=== PATIENT | male | born 1955 | race Caucasian/White ===

== ENCOUNTER → 2024-05-25 09:16 | Outpatient (REF) | payer MEDICARE, BC, SELFPAY | LOC: RCS 09:16 | PROVIDERS: ATTENDING PHYSICIAN Internal Medicine; FAMILY PHYSICIAN Family Medicine | DX: I48.0 Paroxysmal atrial fibrillation (principal); G45.9 Transient cerebral ischemic attack, unspecified; I35.1 Nonrheumatic aortic (valve) insufficiency; I34.0 Nonrheumatic mitral (valve) insufficiency | CPT/HCPCS: 93306 ==

== ENCOUNTER 2024-10-08 13:41 | Emergency (ER) | payer MEDICARE, BC, SELFPAY ==
[2024-10-08 13:41] VITALS: BMI 23.4
[2024-10-08 13:45] VITALS: BP 179/99
[2024-10-08 14:14] LABS: ALT (SGPT) 19 U/L (0-50); AST (SGOT) 25 U/L (17-59); Albumin 4.9 g/dl (3.5-5.0); Alkaline Phosphatase 64 U/L (38-126); Blood Urea Nitrogen 18 mg/dl (9-20); Calcium 9.6 mg/dl (8.4-10.2); Carbon Dioxide 22 mmol/L (22-30); Chloride 105 mmol/L (98-107); Glucose 103 mg/dl (70-99); Potassium 4.2 mmol/L (3.5-5.1); Sodium 138 mmol/L (135-145); Total Bilirubin 1.3 mg/dl (0.2-1.3); Total Protein 7.3 g/dl (6.3-8.2); eGFR > 60.00
[2024-10-08 14:21] LABS: % Basophils 0.8 % (0-2); % Eosinophils 0.2 % (0-6); % Immature Granulocytes 0.2 % (0-0.5); % Lymphocytes 19.7 % (20.5-51.1); % Monocytes 7.1 % (1.7-9.3); Absolute Basophils 0.1 10^3/uL (0-0.2); Absolute Lymphocytes 1.3 10^3/uL (1.2-3.4); Absolute Monocytes 0.5 10^3/uL (0.1-0.6); Absolute Neutrophils 4.8 10^3/uL (1.4-6.5); Hematocrit 45.6 % (39.0-52.0); Hemoglobin 15.7 g/dL (13.0-18.0); Mean Corp Hgb Conc. 34.4 g/dL (33.0-37.0); Mean Corpuscular Hgb 33.2 pg (27.0-31.0); Mean Corpuscular Volume 96.4 fL (80.0-94.0); Mean Platelet Volume 10.7 fL (7.4-10.4); Nucleated Red Blood Cells % 0 % (-); Platelet Count 213 10^3/uL (130-400); Red Blood Cell Count 4.73 10^6/uL (4.70-6.10); Red Cell Dist. Width 12.8 % (11.5-14.5); White Blood Cell Count 6.6 10^3/uL (4.8-10.8)
[2024-10-08 15:30] VITALS: BP 166/104
[2024-10-08 16:00] VITALS: BP 161/87
--- NOTE | 2024-10-08 16:03 | ED.GENMED ---
History of Present Illness
General
Chief Complaint: Heart Rate Problem
Source: patient and records
Time Seen by Provider: 10/08/24 15:38
History of Present Illness
History of Present Illness:
69-year-old male with past medical history of atrial fibrillation status post PVI with RFA in 2010, redo AF ablation in 05/2017 ([facility]) and a third AF ablation on 10/27/2018 ([facility]), hyperlipidemia who presents to the emergency department after he
felt himself go into atrial fibrillation yesterday afternoon, mild palpitations continued today prompting him come to the ER. Patient states that he was told by his pulp and paper tester, Dr. Andrade, that if he feels that he is in A-fib for 24 to 36 hours he
should come to the emergency department to be evaluated. Patient reports that a couple of years ago he required a procainamide infusion which put him back into a normal sinus rhythm. He reports compliance with his 5 mg Eliquis twice daily as well
as his Cardizem 180 mg once daily which he took already today. At present time during my exam patient is without symptoms including chest pain, shortness of breath, palpitations, exertional dyspnea, orthopnea, cough, fevers or any recent illnesses.
Past History
Past History
ED Past Medical History: Arrthythmia (Paroxysmal atrial fibrillation) and Hypercholesterolemia
ED Past Surgical History: Cardiac (Atrial fibrillation ablation 10/26), Orthopedic (Knee surgery), Tonsilectomy and Other (Eye surgery for lazy eye)
Social History
Tobacco: Non-smoker
Alcohol: Occasional
Drug: None
Personal:
Living: with family
Employment: Employed
Family History
Family History: Hypertension
Review of Systems
Review of Systems
All Other Systems: ROS reviewed and negative except as documented in HPI and ROS
Phy Exam
Physical Exam
Physical Exam:
GENERAL: Alert , in no apparent distress
HEAD: NCAT
EYE: clear conjunctiva
NECK: Supple
ENT: o/p clr, mmm.
CARDIAC: Irregularly irregular, heart rate between 72 and 95 bpm
LUNGS: Clear breath sounds bilaterally, no acute respiratory distress,
NEUROLOGICAL: Alert and oriented
SKIN: Warm and dry, skin intact.
MUSCULOSKELETAL: No edema, well perfused.
PSYCH: Normal and appropriate interaction.
Scores
[id number] Score for Afib Stroke Risk
Age in Years (65=0, 65-74=1, >/=75=2): 65-74
Sex (Female=+1): Male
Congestive Heart Failure History (Yes=+1): No
Hypertension History (Yes=+1): Yes
Stroke/TIA/Thromboembolism History (Yes=+2): No
Vascular Disease History (Yes=+1): No
Diabetes Mellitus (Yes=+1): No
Score: 2
Anticoagulation Recommendations: Recommend anticoagulation (as validated in nonvalvular fib)
Heart Failure Risk
Heart Failure Risk Score: Not Applicable
Heart Score for Chest Pain Patients
STEMI patient?: Not applicable
Withdrawal Assessment of Alcohol
Withdrawal Assessment Completed?: Not applicable
Course
Orders/Labs/Results
Orders:
Orders
10/08/24 13:41
ECG [Electrocardiogram (*1)] Urgent
Reason for Study: Palpitations
10/08/24 13:42
EKG- Treatment ONCE
10/08/24 13:52
CMP [Comprehensive Metabolic Panel] Urgent
Complete Blood Count/With Diff Urgent
Abnormal Lab Results
10/08/24
13:52
MCV 96.4 H fL
(80.0-94.0)
MCH 33.2 H pg
(27.0-31.0)
MPV 10.7 H fL
(7.4-10.4)
Lymphocytes % 19.7 L %
(20.5-51.1)
Glucose 103 H mg/dl
(70-99)
10/08/24 13:52
10/08/24 13:52
Vital Signs
Initial and Last Documented VS:
Initial Vital Signs
Temp Pulse Resp BP Pulse Ox
97.7 F 95 18 179/99 99
10/08/24 13:45 10/08/24 13:45 10/08/24 13:45 10/08/24 13:45 10/08/24 13:45
Last Documented Vital Signs
Temp Pulse Resp BP Pulse Ox
97.7 F 87 19 163/93 98
10/08/24 13:45 10/08/24 16:45 10/08/24 16:45 10/08/24 16:30 10/08/24 16:30
Plug Cutter consulted with Physician
Plug Cutter consulted with physician?: Yes
Name of Physician Consulted: Jaylyn
MDM/Problems Addressed
Differential Diagnosis Includes:
Breakthrough A-fib, valvular dysfunction, electrolyte derangement, less concern for infectious etiology
MDM/Problems Addressed:
69-year-old male presenting to the ER for evaluation of breakthrough atrial fibrillation, notes some mild palpitations yesterday, currently asymptomatic. Patient is hemodynamically stable, he is somewhat hypertensive here, notes a history of
whitecoat syndrome. Patient's heart rate is persistently less than 100 bpm and is otherwise asymptomatic. We had extensive discussion about treatment including increasing dose of his p.o. Cardizem and observing, cardioversion, patient wondering
about repeat procainamide infusion. Will discuss with cardiology for treatment planning. Disposition pending.
Chronic conditions affecting care: Arrhythmia
Acute Exacerbation and/or Progression of Chronic Illness: Arrhythmia
*Pulse Oximetry
Patient hypoxic: no
*EKG
Heart Rate: 108
Rate: tachycardiac
Rhythm: a-fib
[place]: normal axis
Ischemia: no ischemia
*Manager Validation Interpretation
Rate: normal
Rhythm: a-fib
*Critical Care Note
Total Time (30-74mins, 75-104mins- exclusive of procedures): Not Applicable
Data Reviewed
Review of Other/Old Records Reveals: Labs, Records and Testing
Patient Management
Discussion with other providers: Residential Housekeeper
Escalation/DeEscalation of care consider admission/obs:
Case discussed with cardiology, no indication to procainamide infuse, states that if patient does want to be cardioverted it is a reasonable option however given he is hemodynamically stable it is more than reasonable to discharge the patient home
to continue his usual medications and see if he converts on his own as he has done this before. In discussion with the patient following patient does feel comfortable being discharged home, currently foregoing cardioversion. Cardiology will touch
base with him on Thursday when office reopens. Patient aware of return precautions to the ER.
ED Attending Note
-
Portions of this chart may have been created with voice recognition software.� Occasional wrong word or��sound alike� substitutions may have occurred due to the inherent limitations of voice recognition software.
Discharge Plan
Departure
Patient Disposition: Home (Routine Discharge)
Date of Disposition: 10/08/24
Time of Disposition: 17:11
Patient with high blood pressure during this ER visit?: Yes
Discharge Problem:
Atrial fibrillation
Instructions: Atrial Fibrillation (DC)
Prescriptions:
No Action
multivitamin with folic acid [Tab-A-Jose C] 1 TABLET tablet
1 tab PO DAILY Qty: 0 0RF
rosuvastatin 10 MG tablet
20 mg PO QPM
apixaban [Eliquis] 5 MG tablet
5 mg PO BID Qty: 60 2RF
coenzyme Q10 [Co Q-10] 10 MG capsule
200 mg PO DAILY
zolpidem 10 MG tablet
10 mg PO HSPRN PRN (Reason: travel flights )
rosuvastatin 10 MG tablet
10 mg PO TUFR
losartan 50 MG tablet
50 mg PO DAILY Qty: 30 0RF
diltiazem HCl 120 MG capsule,ext.rel 24h degradable
120 mg PO DAILY Qty: 30 0RF
Referrals:
Bautista Sultana MD [Family Provider] -
Interventions
Interventions:
*Risk Screen - Suicide Last Done: 10/08/24 13:45
*General Assessment Last Done: 10/08/24 13:45
*Neglect/Abuse Screening Last Done: 10/08/24 13:45
*ED- Fall Risk Assessment Last Done: 10/08/24 17:17
*ED COVID-19 Vaccine History Last Done: 10/08/24 15:24
*Nursing Disposition Last Done: 10/08/24 17:17
ED- Cardiac Assessment Last Done: 10/08/24 15:26
ED- Pulmonary Assessment Last Done: 10/08/24 15:26
Discharge Date and Time
Discharge Date/Time: 10/08/24 17:18
Print Language: IRISH
[2024-10-08 16:30] VITALS: BP 163/93
== END 2024-10-08 17:18 | disposition home or self-care (01) ==
LOC: EMR 13:41
PROVIDERS: Emergency Medicine; EMERGENCY PHYSICIAN Emergency Medicine; FAMILY PHYSICIAN Family Medicine
DX: I48.91 Unspecified atrial fibrillation (principal); I10 Essential (primary) hypertension; E78.00 Pure hypercholesterolemia, unspecified; Z79.01 Long term (current) use of anticoagulants; Z79.899 Other long term (current) drug therapy; Z82.49 Family history of ischemic heart disease and other diseases of the circulatory system
CPT/HCPCS: 99283; 80053; 85025; 93005

== ENCOUNTER 2024-10-10 10:19 | Emergency (ER) | payer MEDICARE, BC, SELFPAY ==
[2024-10-10 10:22] VITALS: BP 155/92
--- NOTE | 2024-10-10 11:14 | ED.GENMED ---
History of Present Illness
General
Chief Complaint: Heart Rate Problem
Source: patient
Time Seen by Provider: 10/10/24 11:01
History of Present Illness
History of Present Illness:
this is a 69-year-old male with a history of A-fib who was recently seen here 2 days ago for A-fib. Patient states his symptoms continued to feel mildly short of breath and anxious. Patient states he admits that he often does get intermittent
episodes of A-fib but goes away quickly. This had persisted. On my arrival to the room, the patient states that he converted to normal sinus. The patient states he immediately felt better and less anxious. Now feels much improved. Has scheduled
follow-up. Already on diltiazem and anticoagulation. States his resting heart rate is often in the 50s
Past History
Past History
ED Past Medical History: Arrthythmia (Paroxysmal atrial fibrillation) and Hypercholesterolemia
ED Past Surgical History: Cardiac (Atrial fibrillation ablation 10/26), Orthopedic (Knee surgery), Tonsilectomy and Other (Eye surgery for lazy eye)
Social History
Tobacco: Non-smoker
Alcohol: Occasional
Drug: None
Personal:
Living: with family
Employment: Employed
Family History
Family History: Hypertension
Phy Exam
Physical Exam
Physical Exam:
CONSTITUTIONAL Patient alert and oriented to person, place and time. Well-appearing. Vital signs reviewed.
HEAD atraumatic, normocephalic.
EYES eyelids normal to inspection, Extraocular muscles intact, Conjunctiva normal, Sclera normal.
NECK normal range of motion, Trachea midline, no jugular venous distention.
RESPIRATORY CHEST No respiratory distress noted, Chest expansion equal, Bilateral breath sounds clear.
CARDIOVASCULAR regular rate and rhythm, Heart sounds normal.
BACK normal inspection, no obvious deformities
UPPER EXTREMITY range of motion normal, Motor strength normal, no cyanosis, no edema.
LOWER EXTREMITY range of motion normal, Motor strength normal, no cyanosis, no edema.
NEURO Speech normal, No focal motor deficits, Kar coma scale 15, Memory normal, Cranial Nerves intact to screening exam.
SKIN skin warm, dry, and normal in color.
Course
Orders/Labs/Results
Orders:
Orders
10/10/24 10:26
EKG [Electrocardiogram (*1)] Urgent
Reason for Study: Atrial Fibrillation
EKG- Treatment ONCE
10/10/24 11:08
Electrocardiogram (*1) Urgent
Reason for Study: Atrial Fibrillation
EKG- Treatment ONCE
Vital Signs
Initial and Last Documented VS:
Initial Vital Signs
Temp Pulse Resp BP Pulse Ox
97.6 F 71 18 155/92 99
10/10/24 10:22 10/10/24 10:22 10/10/24 10:22 10/10/24 10:22 10/10/24 10:22
Last Documented Vital Signs
Temp Pulse Resp BP Pulse Ox
97.6 F 83 18 155/92 99
10/10/24 10:22 10/10/24 11:06 10/10/24 10:22 10/10/24 10:22 10/10/24 11:06
MDM/Problems Addressed
MDM/Problems Addressed:
Paroxysmal atrial fibrillation
*Pulse Oximetry
Patient hypoxic: no
*EKG
Interpreted by ED Provider?: Yes
Interpretation: normal
Rate: normal
Rhythm: sinus
[place]: normal axis
Interval: normal interval
QRS Pattern: normal QRS
Ischemia: no ischemia
*Orthodontic Treatment Coordinator Interpretation
Rate: normal
Interpretation: normal
Rhythm: sinus
*Critical Care Note
Total Time (30-74mins, 75-104mins- exclusive of procedures): Not Applicable
Data Reviewed
Source: patient
Prescriptions/Medications Considered But Not Given:
Considered AV blockers but patient converted to normal sinus rhythm
Patient Management
Escalation/DeEscalation of care consider admission/obs:
Patient converted without intervention. Recent labs reviewed and do not feel that repeat laboratory studies are warranted. Continue current regimen as his resting heart rate he reports is sometimes in the 50s. He will follow-up with his
global ceo
ED Attending Note
-
Portions of this chart may have been created with voice recognition software.� Occasional wrong word or��sound alike� substitutions may have occurred due to the inherent limitations of voice recognition software.
Discharge Plan
Departure
Patient Disposition: Home (Routine Discharge)
Date of Disposition: 10/10/24
Time of Disposition: 11:14
Patient with high blood pressure during this ER visit?: Yes
Discharge Problem:
Paroxysmal A-fib
Instructions: Atrial Fibrillation (DC), Palpitations (DC), BLOOD PRESSURE
Prescriptions:
No Action
multivitamin with folic acid [Tab-A-Jose C] 1 TABLET tablet
1 tab PO DAILY Qty: 0 0RF
rosuvastatin 10 MG tablet
20 mg PO QPM
apixaban [Eliquis] 5 MG tablet
5 mg PO BID Qty: 60 2RF
coenzyme Q10 [Co Q-10] 10 MG capsule
200 mg PO DAILY
zolpidem 10 MG tablet
10 mg PO HSPRN PRN (Reason: travel flights )
rosuvastatin 10 MG tablet
10 mg PO TUFR
losartan 50 MG tablet
50 mg PO DAILY Qty: 30 0RF
diltiazem HCl 120 MG capsule,ext.rel 24h degradable
120 mg PO DAILY Qty: 30 0RF
Activity Restrictions/Additional Instructions:
Please continue your current medications. Return immediately for chest pain, shortness of breath, palpitations, passing out episode or any other concerns. Please see your global ceo as planned
Interventions
Interventions:
*Risk Screen - Suicide Last Done: 10/10/24 10:22
*General Assessment Last Done: 10/10/24 10:22
*Neglect/Abuse Screening Last Done: 10/10/24 10:22
*ED- Fall Risk Assessment Last Done: 10/10/24 11:10
*ED COVID-19 Vaccine History Last Done: 10/10/24 11:10
ED- Cardiac Assessment Last Done: 10/10/24 11:06
ED- Pulmonary Assessment Last Done: 10/10/24 11:06
Discharge Date and Time
Print Language: SYRIAN
== END 2024-10-10 11:30 | disposition home or self-care (01) ==
LOC: EMR 10:19
PROVIDERS: EMERGENCY PHYSICIAN Emergency Medicine; FAMILY PHYSICIAN Family Medicine
DX: I48.0 Paroxysmal atrial fibrillation (principal); R03.0 Elevated blood-pressure reading, without diagnosis of hypertension
CPT/HCPCS: 99283; 93005

== ENCOUNTER 2025-02-07 13:58 | Emergency (ER) | payer MEDICARE, BC, SELFPAY ==
[2025-02-07 14:02] VITALS: BP 176/110
[2025-02-07 14:19] LABS: Hematocrit 42.2 % (39.0-52.0); Hemoglobin 14.8 g/dL (13.0-18.0); Mean Corp Hgb Conc. 35.1 g/dL (33.0-37.0); Mean Corpuscular Volume 91.3 fL (80.0-94.0); Nucleated Red Blood Cells % 0 % (-); Platelet Count 217 10^3/uL (130-400); Red Cell Dist. Width 12.5 % (11.5-14.5)
[2025-02-07 14:33] LABS: ALT (SGPT) 15 U/L (0-50); AST (SGOT) 21 U/L (17-59); Albumin 4.5 g/dl (3.5-5.0); Alkaline Phosphatase 47 U/L (38-126); Blood Urea Nitrogen 10 mg/dl (9-20); Calcium 9.1 mg/dl (8.4-10.2); Carbon Dioxide 23 mmol/L (22-30); Chloride 97 mmol/L (98-107); Glucose 122 mg/dl (70-99); Potassium 3.7 mmol/L (3.5-5.1); Sodium 128 mmol/L (135-145); Total Protein 6.7 g/dl (6.3-8.2); eGFR > 60.00
[2025-02-07 14:41] LABS: Troponin I < 0.012 ng/ml
[2025-02-07 17:07] VITALS: BP 153/91
--- NOTE | 2025-02-07 17:51 | ED.GENMED ---
History of Present Illness
General
Chief Complaint: Cardiac Symptoms
Time Seen by Provider: 02/07/25 17:33
History of Present Illness
History of Present Illness:
69-year-old male presents to the emergency department for evaluation of A-fib. He has a history of A-fib status post catheter ablation in 2010, he has been maintained on diltiazem and Eliquis since then. States that 2 days ago he developed heart
palpitations that indicated to him he was in A-fib. He did take an extra dose of diltiazem at the request of his hand bindery assembly worker and feels as though it is helping his symptoms, he remains in A-fib. He notes that he has severe unrelenting anxiety
while he is in A-fib and has been unable to eat or sleep since that time. Contacted his hand bindery assembly worker again today, he is scheduled for a procainamide infusion cardioversion in 2 days was advised to come to the ED for further evaluation due to his
ongoing symptoms. Denies any chest pain or chest tightness, denies shortness of breath at this time.
Past History
Past History
ED Past Medical History: Arrthythmia (Paroxysmal atrial fibrillation) and Hypercholesterolemia
ED Past Surgical History: Cardiac (Atrial fibrillation ablation 10/26), Orthopedic (Knee surgery), Tonsilectomy and Other (Eye surgery for lazy eye)
Social History
Tobacco: Non-smoker
Alcohol: Occasional
Drug: None
Personal:
Living: with family
Employment: Employed
Family History
Family History: Hypertension
Review of Systems
Review of Systems
Allergies reviewed?: Yes
All Other Systems: ROS reviewed and negative except as documented in HPI and ROS
Phy Exam
Physical Exam
Physical Exam:
GEN: Well appearing, NAD, WDWN
HEENT: Oral mucosa moist, no scleral icterus
Cardiac: Irregular but controlled rate, no murmur, lungs clear to auscultation
Lung: No respiratory distress, no tachypnea
MSK: No gross deformity or injuries
Skin: Good color, no pallor or jaundice, no rashes
Neuro: AO x3, moves all extremities freely
Psych: Calm, cooperative
Course
Orders/Labs/Results
Orders:
Orders
02/07/25 13:58
EKG [Electrocardiogram (*1)] Urgent
Reason for Study: Atrial Fibrillation
02/07/25 13:59
EKG- Treatment ONCE
02/07/25 14:11
Complete Blood Count/With Diff Urgent
Comprehensive Metabolic Panel Urgent
Troponin I Urgent
Abnormal Lab Results
02/07/25
14:11
RBC 4.62 L 10^6/uL
(4.70-6.10)
MCH 32.0 H pg
(27.0-31.0)
Absolute Lymphs (auto) 1.1 L 10^3/uL
(1.2-3.4)
Neutrophils % 76.6 H %
(42.2-75.2)
Lymphocytes % 16.1 L %
(20.5-51.1)
Sodium 128 L mmol/L
(135-145)
Chloride 97 L mmol/L
(98-107)
Glucose 122 H mg/dl
(70-99)
02/07/25 14:11
02/07/25 14:11
Vital Signs
Initial and Last Documented VS:
Initial Vital Signs
Temp Pulse Resp BP Pulse Ox
98.7 F 79 18 176/110 98
02/07/25 14:02 02/07/25 14:02 02/07/25 14:02 02/07/25 14:02 02/07/25 14:02
Last Documented Vital Signs
Temp Pulse Resp BP Pulse Ox
98.7 F 69 15 153/91 98
02/07/25 14:02 02/07/25 17:45 02/07/25 17:45 02/07/25 17:07 02/07/25 17:53
MDM/Problems Addressed
MDM/Problems Addressed:
Patient remains in a rate controlled atrial fibrillation in the ED, he exhibits no clinical signs of congestive heart failure or acute coronary syndrome. I did discuss the potential benefit of electrical cardioversion in the ED however he would
prefer to go through the scheduled procainamide infusion with his primary hand bindery assembly worker. Given his hemodynamic stability this is reasonable at this time, I have prescribed him anxiolytic medication to use for the next several days as this seems to
be the primary focus of his symptoms
*Pulse Oximetry
SaO2: 98
Oxygen Mode of Delivery: Room air
Patient hypoxic: no
*Critical Care Note
Total Time (30-74mins, 75-104mins- exclusive of procedures): Not Applicable
ED Attending Note
-
Portions of this chart may have been created with voice recognition software.� Occasional wrong word or��sound alike� substitutions may have occurred due to the inherent limitations of voice recognition software.
Discharge Plan
Departure
Patient Disposition: Home (Routine Discharge)
Date of Disposition: 02/07/25
Time of Disposition: 17:52
Patient with high blood pressure during this ER visit?: Yes
Discharge Problem:
Atrial fibrillation
Instructions: Atrial fibrillation (DC)
Prescriptions:
New
lorazepam 1 mg tablet
1 mg PO TID PRN (Reason: anxiety) Qty: 8 0RF
No Action
multivitamin with folic acid [Tab-A-Jose C] 1 TABLET tablet
1 tab PO DAILY Qty: 0 0RF
rosuvastatin 10 MG tablet
20 mg PO QPM
apixaban [Eliquis] 5 MG tablet
5 mg PO BID Qty: 60 2RF
coenzyme Q10 [Co Q-10] 10 MG capsule
200 mg PO DAILY
zolpidem 10 MG tablet
10 mg PO HSPRN PRN (Reason: travel flights )
rosuvastatin 10 MG tablet
10 mg PO TUFR
losartan 50 MG tablet
50 mg PO DAILY Qty: 30 0RF
diltiazem HCl 120 MG capsule,ext.rel 24h degradable
120 mg PO DAILY Qty: 30 0RF
Referrals:
Bautista Sultana MD [Family Provider, Family Practice]
Activity Restrictions/Additional Instructions:
Use the anti anxiety medication as needed
Follow up with your hand bindery assembly worker as discussed
Return if symptoms worsen
Interventions
Interventions:
*Risk Screen - Suicide Last Done: 02/07/25 14:02
*General Assessment Last Done: 02/07/25 14:02
*Neglect/Abuse Screening Last Done: 02/07/25 14:02
*ED- Fall Risk Assessment Last Done: 02/07/25 18:04
*ED COVID-19 Vaccine History Last Done: 02/07/25 17:16
*Nursing Disposition Last Done: 02/07/25 18:04
ED- Pulmonary Assessment Last Done: 02/07/25 17:14
ED- Cardiac Assessment Last Done: 02/07/25 17:14
Discharge Date and Time
Discharge Date/Time: 02/07/25 18:05
Print Language: GREEK
== END 2025-02-07 18:05 | disposition home or self-care (01) ==
LOC: EMR 13:58
PROVIDERS: Emergency Medicine; EMERGENCY PHYSICIAN Emergency Medicine; FAMILY PHYSICIAN Family Medicine
DX: I48.91 Unspecified atrial fibrillation (principal); E78.00 Pure hypercholesterolemia, unspecified
CPT/HCPCS: 99284; 80053; 84484; 85025; 93005

== ENCOUNTER 2025-02-09 10:09 | Day surgery (SDC) | payer MEDICARE, BC, SELFPAY ==
[2025-02-09 10:57] LABS: Magnesium 1.8 mg/dl (1.6-2.3)
--- NOTE | 2025-02-09 12:11 | ITS.CL.CARDI ---
Powerhouse Mechanic Supervisor - Cardioversion
Cardioversion
Procedure Report:
Pharmacologic Cardioversion:
Mr. Ramos is a very pleasant 69 yrs old pleasant gentleman with hx of atrial fibrillation s/p AF ablations x3 (1st in 2010 � RF, then [facility] [id number] and RF in 2018 � Dr. Kerr), anticoagulated with Eliquis, who was planned to undergo redo
ablation in 2021 but had decided to pursue conservative approach with now more frequent and symptomatic recurrences in atrial flutter /atrial fibrillation is here for elective pharmacologic cardioversion. Pt wants to avoid sedation and is opting for
pharmacologic cardioversion.�
Date of the Procedure:
02/09/2025
Indications:
Recurrence of symptomatic atrial fibrillation
Pre-Operative Diagnosis:
Persistent Atrial fibrillation
Post-Operative Diagnosis:
Persistent Atrial fibrillation
Procedure Performed:
DCCV
Performing Physician:
Isabel Castaneda MD
Anesthesia:
See anesthesia records
Pre-procedure Trans-esophageal Echocardiography:
No thrombus noted in the left atrium or left atrial appendage
Deferred. Patient has been on uninterrupted chronic anticoagulation therapy with Eliquis for over 2 months.
Detailed Description of the Procedure:
Written informed consent was obtained from the patient after a full explanation of the risks and benefits of the procedure including the risks of sedation and anesthesia.
The patient was brought to the electrophysiology laboratory in stable condition in fasting state. Continuous electrocardiographic and hemodynamic monitoring was initiated. Zoll patches were applied with alycia-posterior locations.
The initial rhythm was atrial fibrillation.
Cardioversion:
With rhythm, hemodynamic monitoring started. Consent was signed and recorded. A time out was performed.
An IV access was started. Hemodynamics were monitored and pt remained stable. A slow infusion of Ibutilide 1 mg in normal saline was infused over 10 minutes.
Patient rhythm changed from atrial fibrillation to atypical atrial flutter and then to sinus rhythm 2 minutes after the infusion was complete
Procedure End:
There was sinus bradycardia with normal MO interval and QRS. There was no significant pause noted after the shock.
Complications of the Procedure:
None
Condition of Patient at Time of Transfer:
Hemodynamically stable with no neurological or vascular compromise.
Recommendation:
Monitor telemetry and hemodynamics for 4 hours post cardioversion.
Discharge home after 4 hours.
Summary:
Successful pharmacologic cardioversion and moravian of normal sinus rhythm.
== END 2025-02-09 15:44 | disposition home or self-care (01) ==
LOC: CATH 10:09
PROVIDERS: Nurse Practitioner Adult Health; ATTENDING PHYSICIAN Internal Medicine Cardiovascular Disease; FAMILY PHYSICIAN Family Medicine; OTHER PHYSICIAN Internal Medicine
DX: I48.19 Other persistent atrial fibrillation (principal); E78.00 Pure hypercholesterolemia, unspecified
CPT/HCPCS: 96365; 83735; 93005; J1742

== ENCOUNTER 2025-02-14 10:00 | Day surgery (SDC) | payer MEDICARE, BC, SELFPAY ==
[2025-02-14] VITALS (13 sets, daily range): BP systolic 129–185; BP diastolic 75–102; BMI 23.2
[2025-02-14 14:30] LABS: ACT-LR - POC > 397 Seconds (116-155)
[2025-02-14 14:30] LABS: ACT-LR - POC > 397 Seconds (116-155)
[2025-02-14 14:30] LABS: ACT-LR - POC > 397 Seconds (116-155)
--- NOTE | 2025-02-14 15:14 | ITS.CL.ABL ---
Medical Sales Specialist - Ablation
Ablation
Procedure Report:
AFIB ablation:
Mr. Ramos is a very pleasant 69 yr old gentleman with hx of atrial fibrillation s/p AF ablations x3 (1st in 2010 � RF, then Cryo and RF in 2018 and RF in 2019 � Dr. Kerr), with hx of left sided pulmonary vein stenosis since 2010, with LSPV
obliterated and stenosed LIPV in 2017, anticoagulated with Eliquis, who was planned to undergo redo ablation in 2021 but had decided to pursue conservative approach with now more frequent and symptomatic recurrences in atrial flutter /atrial
fibrillation last cardioverted with Ibutilide earlier this month presented today to the EP lab for atrial fibrillation / flutter ablation.
Date of Procedure:
02/14/2025
Indications:
Recurrent atrial fibrillation / atrial flutter
Pre-Operative Diagnosis:
Persistent atrial fibrillation /Atrial flutter
Post-Operative Diagnosis:
Persistent atrial fibrillation /Atrial flutter
Procedure Performed:
Atrial fibrillation ablation with pulmonary vein isolation
Left atrial flutter � roof dependent ablation
Posterior wall isolation
Performing Physician:
Isabel Castaneda MD
Assistants:
EP staff
Anesthesia:
See anesthesia records
Detailed Description of the Procedure:
Written informed consent was obtained from the patient after a full explanation of the risks and benefits of the procedure including the risks of sedation and anesthesia.
The patient was brought to the electrophysiology laboratory in stable condition in fasting state. Continuous electrocardiographic and hemodynamic monitoring was initiated.
The initial rhythm was sinus bradycardia.
Time out:
The procedure site was meticulously prepared with surgical scrub and allowed to dry with no pooling. Sterile draping was applied to cover the procedure site. The image intensifier was draped with sterile bag and positioned over the patient.
Prior to the start of the procedure a surgical pause was performed with in agreement from anesthesia, EP staff with double identifier and explanation of the procedure, plan and site of the procedure stated with allergies and medications and
pertinent labs reviewed.
After infusion of local anesthetic, vascular access was obtained under ultrasound guidance and sheaths were placed over guide wire as detailed below. The images were stored in patient chart.
Sheaths:
��������������� Agilis sheath in right femoral vein upgraded from 8Fr in right femoral vein
��������������� 9Fr in right femoral vein
Catheters:
��������������� The Affera Sphere 9 catheter -bidirectional D/F� - at locations of HRA, RV, LA and LV.
��������������� ICE catheter - at locations of RA, SVC, and RV.
A 7000 units of heparin was given
Intracardiac ECHO:
An 8-Andorran AcuNav intracardiac ECHO (ICE) probe was advanced through the 9-Andorran sheath in the right femoral vein into the right atrium under fluoroscopic and ICE ultrasound image guidance and a baseline ECHO study was performed. The left atrial
size was dilated. There was trace tricuspid regurgitation. There was mild mitral regurgitation. There was normal left ventricular systolic function. There is no pericardial effusion. The left sided vein had no flow noted. The SIDNEY had excellent flow
on Doppler. No definite clot seen.�
During the procedure, ICE was used for monitoring of complications, guidance of trans-septal puncture, monitor the catheter position and tracking ablation lesions. No change in the pericardial space noted throughout the procedure.
Trans-septal Puncture:
Heparin was initiated and infused to maintain appropriate ACT. A J-tipped guidewire was advanced through into the superior vena cava under fluoroscopic and ICE guidance. The Agilis sheath was advanced into the superior vena cava over a guidewire. A
BRK needle with stylet was advanced inside the Agilis sheath. The apparatus was withdrawn until it was in contact with the fossa ovalis. The position was adjusted based on fluoroscopy and ultrasound images from ICE. Under fluoroscopic, hemodynamic
and ICE ultrasound guidance, left atrium was cannulated by advancing the needle. Once atrial septum was cannulated, the needle was pulled back and the guide wire was advanced through the needle into the left atrium. The guide wire was advanced into
the left superior pulmonary vein. Both the sheath and the dilator was advanced into the left atrium. The dilator with the needle was withdrawn. Blood was aspirated from the Agilis sheath and arterial blood confirmed. The sheath was flushed. Saline
injection noted into the left atrium on ICE. The waveform of the LA pressure was recorded. The mapping catheter was advanced in the Agilis sheath into the left pulmonary vein.
3D Electroanatomic Mapping:
Using the Sphere 9 Affera catheter advanced through Agilis sheath into the left atrium, an electroanatomic map (EAM) of the left atrium was created using Acceleraa� mapping system with Vendigi software. The map was used for localization of catheter
position and tacking of ablation lesions.
The EAM of the left atrium showed rotated anatomy. The left sided veins could not be accessed with stenosed antra. The wall of the left sided vein though were reconnected with fractionated and delayed signals noted in the stub of the veins.
The right sided veins were rotated with a large right sided vein and another large anterior vein noted. The rashawn and the right inferior veins had signals noted.
The posterior wall had scattered scar and fractionated signals.
The LA was dilated. �
Following the EAM, preparation were made for ablation.
Ablation:
Ablation # 1: Atrial fibrillation ablation - Pulmonary vein Isolation:
Pulsed field ablation was performed using an open irrigation, bidirectional, contact sensing, dual energy ablation catheter (Affera sphere -9) by completing the circumferential lesions around the left and right pulmonary veins achieving pulmonary
vein isolation.
Ablation # 2: Roof line Formation:
There was a clear channel of electrical activity left in the posterior wall with multiple CFAE and AF areas on the roof and ablation in that area increased the risk of atrial flutter and decision was made to create a roof line to block a slow
conduction. A set of pulsed field ablations were placed on the roof line connecting the left superior pulmonary vein ablation lesions to the right sided pulmonary vein lesions rings.
Ablation # 3: Posterior wall isolation with the Box lesions set Formation:
There was a significant fractionation seen in the posterior wall and LA AF foci along with CFAE made it clear as the posterior wall is critical in maintaining the atrial fibrillation and the decision was made to isolate the posterior wall by
creating a �Box� lesions.
A set of Pulsed field ablations were placed on the floor line connecting the left inferior pulmonary vein ablation lesions to the right inferior pulmonary vein lesions rings.
Once sinus rhythm achieved, the sphere 9 in the posterior wall showed entrance block and the pacing from the posterior wall showed no exit from the box lesions confirming the exit block.
Confirmation of the PVI and bidirectional block:
Following achievement of entrance block at the pulmonary veins, pacing from the Sphere 9 affera catheter in each of the four veins at 10 milliamps for 4 milliseconds showed entrance and exit block.
The LA was mapped with The Acceleraa� mapping system with Vendigi software in sinus rhythm confirming the line of block at the ablation lesions lines.
Patient had conduction delayed with Wenckebach / second degree AV conduction. There was no significant pause noted.
All PVI were rechecked at the end of the case. Entrance and exit block were demonstrated.
Procedure End
ICE study was done again that showed no epicardial accumulation. No complications noted.
Following the completion of the EP study, catheters were removed. Protamine 40 mg was given at the end of the procedure and ACT was checked repeatedly. The sheaths were removed and hemostasis achieved with Fig of 8 suture and manual compression.
Left atrial Pressure:
Pre-Procedure: Mean RA pressure was 11mmHg
Post-Procedure: Mean LA pressure was 10mmHg
Post-Procedure: Mean RA pressure was 1mmHg
Estimated Blood loss:
<10 cc
Specimens Removed:
None.
Implants / Devices:
None
Urine output:
None
Packs / Drains/ Tubes:
None
Instrument / Sponge Count Correct:
Yes
Complications of the Procedure:
None
Condition of Patient at Time of Transfer:
Hemodynamically stable with no neurological or vascular compromise.
Summary:
Successful redo atrial fibrillation ablation with repeat pulmonary vein isolation, roof flutter ablation, posterior wall isolation.
[2025-02-14] MEDS: ANESTHETIC LOZENGE 1 LOZENGE PO ×3 (15:30→22:51)
[2025-02-14] MEDS: ELIQUIS 5 MG PO ×2 (20:27→20:31)
[2025-02-14] MEDS: CRESTOR 20 MG PO (20:31)
[2025-02-14] MEDS: AMBIEN 10 MG PO (22:51)
[2025-02-14] MEDS: NORVASC 5 MG PO (23:32)
--- NOTE | 2025-02-15 00:19 | PTCARENOTE ---
Received pt into room 2250 from superintendent geophysical laboratory RN at ~1930. pt placed on tele, SB, HR 50's. Right groin site C/D/I. No bleeding or hematoma noted at this time. pt ambulated w/ assistance of RN. pt oriented to room and call monteiro. pt requesting Ambien for
sleep tonight, CVPA put in order. Administered per pt request. Encouraged pt to call RN w/ any qustions/concerns. Call monteiro within reach.
~2300 pt BP 170/102, Ed Ezra, CVPA made aware. Order for Norvasc obtained. Administered per order--see JUL.
[2025-02-15 00:30] VITALS: BP 175/87
[2025-02-15] MEDS: TYLENOL 650 MG PO ×2 (01:00→09:56)
[2025-02-15 04:17] VITALS: BP 154/78
[2025-02-15 04:46] LABS: Hematocrit 42.6 % (39.0-52.0); Hemoglobin 14.6 g/dL (13.0-18.0); Mean Corp Hgb Conc. 34.3 g/dL (33.0-37.0); Mean Corpuscular Volume 92.4 fL (80.0-94.0); Platelet Count 206 10^3/uL (130-400); Red Cell Dist. Width 12.8 % (11.5-14.5)
[2025-02-15 05:08] LABS: Blood Urea Nitrogen 11 mg/dl (9-20); Calcium 9.3 mg/dl (8.4-10.2); Carbon Dioxide 25 mmol/L (22-30); Chloride 105 mmol/L (98-107); Estimated Creatinine Clearance 84 ml/min; Glucose 123 mg/dl (70-99); Magnesium 2.0 mg/dl (1.6-2.3); Potassium 4.6 mmol/L (3.5-5.1); Sodium 136 mmol/L (135-145); eGFR > 60.00
[2025-02-15 08:12] VITALS: BP 152/84
[2025-02-15] MEDS: CARDIZEM CD 180 MG PO (08:41)
[2025-02-15] MEDS: ELIQUIS 5 MG PO (08:42)
[2025-02-15 08:46] VITALS: BP 161/87
[2025-02-15] MEDS: ANESTHETIC LOZENGE 1 LOZENGE PO (08:46)
[2025-02-15 09:53] VITALS: BP 145/83
--- NOTE | 2025-02-15 10:25 | W.PN.CARDCBS ---
Addendum entered and electronically signed by Jim Carrillo MD 02/15/25 13:03:
Patient seen and examined in collaboration with MANAGER MARKET RESEARCH; agree with below.
- Patient is stable status-post atrial fibrillation ablation yesterday.
- Stable for discharge to home; outpatient follow-up with Cardiology.
Original Note:
Today's Communication / Plan
-
post ablation with elevated BP
OAC Eliquis
continue diltiazem and add Amlodipine 5mg daily
Impression / Plan
-
PCP: Bautista Sultana MD
CDY: Damien Andrade MD
Mr. Ramos is a very pleasant 69 yr old gentleman with hx of atrial fibrillation s/p AF ablations x3 (1st in 2010 � RF, then Cryo and RF in 2018 and RF in 2019 � Dr. Kerr), with hx of left sided pulmonary vein stenosis since 2010, with LSPV
obliterated and stenosed LIPV in 2018, anticoagulated with Eliquis, who was planned to undergo redo ablation in 2021 but had decided to pursue conservative approach with now more frequent and symptomatic recurrences in atrial flutter /atrial
fibrillation last cardioverted with Ibutilide earlier this month presented today to the EP lab for atrial fibrillation / flutter ablation.
Impression/Plan:
#Symptomatic persistent Afib/Aflutter - prior PVI x 3, post redo PVI, PW and LA flutter ablation 02/14/25. He feels great
groin stable, tele SR/SB
OAC Eliquis, continue diltiazem
#HTN - white coat syndrome but BP's have been running higher than usual
will continue diltiazem, and will add amlodipine 5mg daily, continue to monitor and bring log to f/u apt
#TIA
#GERD
#Panic d/o
#Mild AR/Mild-mod MR
#DJD
stable for d/c home if bp improves after amlodipine
Progress Note - Waste Transportation Technician
Subjective
Date of Service: February 15, 2025
denies sob, mild 05/27 chest tightness
Objective
Labs:
02/15/25 04:23
02/15/25 04:23
Labs
Hgb 14.6 g/dL (13.0-18.0) 02/15/25 04:23
Hct 42.6 % (39.0-52.0) 02/15/25 04:23
Plt Count 206 10^3/uL (130-400) 02/15/25 04:23
Sodium 136 mmol/L (135-145) 02/15/25 04:23
Potassium 4.6 mmol/L (3.5-5.1) 02/15/25 04:23
BUN 11 mg/dl (9-20) 02/15/25 04:23
Creatinine 0.8 mg/dL (0.7-1.3) 02/15/25 04:23
Glucose 123 mg/dl (70-99) H 02/15/25 04:23
Vital Signs and I&O:
Vital Signs
Temp Pulse Resp BP Pulse Ox
97.5 F 82 20 161/87 97
02/15/25 08:12 02/15/25 08:46 02/15/25 08:12 02/15/25 08:46 02/15/25 08:12
Vital Signs
Temp Pulse Resp BP Pulse Ox
97.5 F 82 20 161/87 97
02/15/25 08:12 02/15/25 08:46 02/15/25 08:12 02/15/25 08:46 02/15/25 08:12
Intake & Output
02/13/25 02/14/25 02/15/25 02/16/25
06:59 06:59 06:59 06:59
Intake Total 1774
Balance 1774
Physical Exam
Physical Exam
NAD, AOX3
S1, s2, RRR
CTAB, non labored, no wheeze
SNTND Bsx4
R fem site c/d/i no HT, soft
[2025-02-15 11:14] VITALS: BP 159/80
--- NOTE | 2025-02-15 12:02 | CM ---
Chart reviewed. Patient is independent of ADLS, lives alone in a2 STH, 1 TODD, 0 DME. Plan is for the patient to return home.
--- NOTE | 2025-02-15 14:49 | W.DS.TRANS ---
DC Summary - Material Scheduler
-
Discharge Instructions:
Sleep Apnea Risk Low
Discharge Diagnosis/Procedures Atrial fibrillation post ablation
Diet Low Cholesterol
Driving Restrictions No driving for 24 hours
Instructions:
Stand-Alone Forms: DC Instructions- Cath/EP Lab
Changes to Home Medications: Yes
Discharge Medications:
DC Medications w/original date entered in [facility]
coenzyme Q10 10 mg capsule (Co Q-10) 200 mg PO DAILY 05/07/17
apixaban 5 mg tablet (Eliquis) 5 mg PO BID ##60 06/09/17
diltiazem HCl 180 mg capsule,24 hr,extended release 180 mg PO DAILY 02/09/25
rosuvastatin 20 mg tablet 20 mg PO DAILY 02/09/25
zolpidem 10 mg tablet 10 mg PO HS PRN insomnia 02/09/25
amlodipine 5 mg tablet 5 mg PO DAILY #30 tabs 02/15/25
Home Medication Changes
new to amlodipine
Pending Results: No
== END 2025-02-15 12:31 | disposition home or self-care (01) ==
LOC: CATH 10:00
PROVIDERS: Nurse Practitioner Adult Health; ATTENDING PHYSICIAN Internal Medicine Cardiovascular Disease; FAMILY PHYSICIAN Family Medicine; OTHER PHYSICIAN Internal Medicine
DX: I48.92 Unspecified atrial flutter (principal); I48.19 Other persistent atrial fibrillation; I10 Essential (primary) hypertension; F41.0 Panic disorder [episodic paroxysmal anxiety]; I08.0 Rheumatic disorders of both mitral and aortic valves; I73.9 Peripheral vascular disease, unspecified; Z79.01 Long term (current) use of anticoagulants; Z79.899 Other long term (current) drug therapy
CPT/HCPCS: C1733; 80048; 83735; 85027; 85347; 86850; 86900; 86901; 93005; 93655; 93656; 93657; C1759; C1766; C1769; C1894

== ENCOUNTER 2025-02-18 10:54 | Inpatient (IN) | payer MEDICARE, BC, SELFPAY ==
[2025-02-18] VITALS (18 sets, daily range): BP systolic 103–162; BP diastolic 63–105; BMI 24.5; BMI 22.1
[2025-02-18 09:19] LABS: ALT (SGPT) 22 U/L (0-50); AST (SGOT) 24 U/L (17-59); Albumin 4.9 g/dl (3.5-5.0); Alkaline Phosphatase 56 U/L (38-126); Blood Urea Nitrogen 10 mg/dl (9-20); Calcium 9.7 mg/dl (8.4-10.2); Carbon Dioxide 28 mmol/L (22-30); Chloride 97 mmol/L (98-107); Estimated Creatinine Clearance 84 ml/min; Glucose 125 mg/dl (70-99); Potassium 4.5 mmol/L (3.5-5.1); Sodium 132 mmol/L (135-145); Total Protein 7.5 g/dl (6.3-8.2); eGFR > 60.00
[2025-02-18 09:40] LABS: Hematocrit 49.8 % (39.0-52.0); Hemoglobin 17.2 g/dL (13.0-18.0); Mean Corp Hgb Conc. 34.5 g/dL (33.0-37.0); Mean Corpuscular Volume 93.8 fL (80.0-94.0); Nucleated Red Blood Cells % 0 % (-); Platelet Count 246 10^3/uL (130-400); Red Cell Dist. Width 12.7 % (11.5-14.5)
--- NOTE | 2025-02-18 10:43 | ED.GENMED ---
History of Present Illness
General
Chief Complaint: Chest Pain
Source: patient
Time Seen by Provider: 02/18/25 08:29
History of Present Illness
History of Present Illness:
Note:
CHIEF COMPLAINT(S)
Atrial fibrillation with associated anxiety, insomnia, and difficulty eating.
HISTORY OF PRESENT ILLNESS
The patient is a 69-year-old male with a history of paroxysmal atrial fibrillation who presents with ongoing atrial fibrillation and associated anxiety. He reports being in atrial fibrillation since Thursday, despite taking a second dose of his
prescribed medication. He describes significant stress and symptoms that include elevated blood pressure, insomnia, and anorexia leading to a six-pound weight loss over the past two weeks. He was in a stable sinus rhythm following a recent
cardioversion and ablation, but reverted to atrial fibrillation yesterday. He attributes his inability to eat and sleep primarily to anxiety, which he describes as worsening over the last six to eight months. He identifies these symptoms as similar
to panic attacks. He has consulted multiple cardiologists and is currently under the care of Dr. Andrade for his atrial fibrillation. He has been reassured previously by medical staff regarding the management and prognosis of atrial fibrillation, with
emphasis on stroke prevention and rate control.
PAST MEDICAL AND SURIGICAL HISTORY
The patient has a history of paroxysmal atrial fibrillation.
EXTERNAL RECORDS REVIEWED
The patients current medication regimen and past records from recent cardioversion and ablation were referenced.
CHRONIC MEDICAL CONDITIONS SIGNIFICANTLY AFFECTING CARE
Atrial fibrillation.
SOCIAL DETERMINANTS AFFECTING HEALTH
The patient reports significant anxiety affecting his ability to eat and sleep.
MEDICATIONS
- Apixaban (Eliquis): ongoing use for atrial fibrillation.
- Propranolol: started this week.
- Amlodipine: started this week.
- Lorazepam: previously prescribed.
REVIEW OF SYSTEMS
- Cardiovascular: Persistent atrial fibrillation reported. Blood pressure noted to be elevated.
- Psychiatric: Patient reports anxiety and inability to sleep.
- General: Reports six-pound weight loss over the past two weeks and difficulty eating.
PHYSICAL EXAM
General: Alert, no acute distress.
Skin: Warm, dry.
Head: Normocephalic, atraumatic.
Neck: Supple, trachea midline.
Eyes, Ears, Nose, and Throat: Oral mucosa moist.
Cardiovascular: Heart is irregularly irregular. Lungs clear to auscultation. Legs without edema.
Respiratory: Respirations are non-labored.
Gastrointestinal: Abdomen nondistended.
Back: Normal range of motion, normal alignment.
Musculoskeletal: Normal range of motion, normal strength.
Neurological: Alert and oriented to person, place, time, and situation, no focal neurological deficit observed.
Psychiatric: Cooperative, appropriate mood & affect.
PROBLEM LIST
Acute:
- Atrial fibrillation
- Anxiety related to atrial fibrillation
PLAN
- Review patients electrolytes to rule out contributing metabolic causes.
- Evaluate current medications and consult with Dr. Beatty team for possible adjustments or additional interventions.
- Address anxiety management, acknowledging beta-blockers like propranolol may help mitigate symptoms.
- Reassurance provided regarding the episodic nature of atrial fibrillation and the chronic management plan focusing on stroke prevention and symptomatic relief.
DIFFERENTIAL DIAGNOSIS
The Differential Diagnosis includes, in no particular order and is not limited to:
- Atrial fibrillation
- Generalized anxiety disorder
- Panic disorder
- Hyperthyroidism
- Sleep disturbance due to anxiety
- Medication side effects
- Depression
- Heart failure
- Electrolyte imbalance
- Arrhythmia due to other causes
EKG
My independent EKG interpretation is:
- Heart rate: 63 bpm
- Rhythm: Atrial fibrillation
- [place]: Normal
- QRS duration: Normal
- QT interval: Normal
- No acute ischemic changes observed
Disposition:
SUMMARY OF ENCOUNTER
A 69-year-old male presented with recurrent anxiety related to atrial fibrillation (AFib). He has undergone a recent ablation and multiple prior cardioversions. After discussion with cardiology, they recommended admitting the patient for observation
and further management. A small dose of anxiolytics was administered for anxiety management. Laboratory results, including CBC and CMP, were reviewed as normal. Cardiac monitoring indicates rate-controlled AFib.
DISPOSITION
Admit
ASSESSMENT
Recurrent atrial fibrillation with associated anxiety. Stable on presentation with normal laboratory results.
EMERGENCY TREATMENTS ADMINISTERED
Anxiolytics administered for anxiety management.
MANAGEMENT OF THE PATIENTS CARE WAS DISCUSSED WITH
The patients care was discussed with cardiology, who recommended admission for further observation and management.
INDEPENDENT REVIEW OF LABS AND INTERPRETATION OF TESTS
- My independent review of CBC is normal.
- My independent review of CMP is normal.
PATIENT EDUCATION AND COUNSELING
The patient was informed about the nature of atrial fibrillation, the plan for admission for continued observation, and the potential adjustment of treatment strategies.
MEDICATION RECONCILIATION
Anxiolytics were administered for the management of anxiety related to atrial fibrillation.
MEDICAL DECISION MAKING
- Number and Complexity of Problems Addressed: Chronic conditions affecting care include paroxysmal atrial fibrillation and anxiety. Differential Diagnosis includes atrial fibrillation, generalized anxiety disorder, panic disorder, and potential
medication side effects.
- Data:
- Category 1: My independent review of non-emergency department records including prior ablation and cardioversion history.
- Category 3: Discussion of management with cardiology regarding the patients admission and management plan.
- Risk: Care was significantly affected by the patients anxiety related to atrial fibrillation.
DIAGNOSIS
- Paroxysmal atrial fibrillation (I48.0)
- Anxiety disorder, unspecified (F41.9)
Past History
Past History
ED Past Medical History: Arrthythmia (Paroxysmal atrial fibrillation) and Hypercholesterolemia
ED Past Surgical History: Cardiac (Atrial fibrillation ablation 10/26), Orthopedic (Knee surgery), Tonsilectomy and Other (Eye surgery for lazy eye)
Social History
Tobacco: Non-smoker
Alcohol: Occasional
Drug: None
Personal:
Living: with family
Employment: Employed
Family History
Family History: Hypertension
Phy Exam
Physical Exam
Physical Exam:
.
Scores
Heart Score for Chest Pain Patients
STEMI patient?: Not applicable
Course
Orders/Labs/Results
Orders:
Orders
02/18/25 08:16
Electrocardiogram (*1) Urgent
Reason for Study: Chest Pain
EKG- Treatment ONCE
02/18/25 08:50
Complete Blood Count/With Diff Urgent
02/18/25 08:51
Comprehensive Metabolic Panel Urgent
02/18/25 10:40
Lorazepam [Ativan] 1 mg PO NOW STA
02/18/25 10:43
Admit/Transfer Patient As Directed
Co-Sign Provider:
Level of Care: Inpatient admission
Assign to:: IVU
Physician / Group: CBC
Diagnosis: Paroxysmal atrial fibrillation
Reason for Hospitalization: Paroxysmal atrial fibrillation, Tikosyn loading
Expected length of stay greater than two midnights?: Yes
ELOS- Estimated Length of Stay in days: 3
I certify the patient meets the requirements for IP care: Yes
02/18/25 10:44
Code Status As Directed
Resuscitation Status: Full Code
02/18/25 10:46
PRN Pain Medication Management As Directed
May give lesser potent ordered pain med per pt: Yes
preference::
Protocol:: Medication orders for pain may be administered in a
manner that supports deferring to patient preference
when the pt is:
- Requesting an ordered lesser potent pain medication.
Least to most potent pain medications are defined
as: acetaminophen < NSAID < tramadol < opioids
(morphine, oxycodone, hydromorphone).
- Requesting a lesser dose of the same medication IF
ORDERED.
- Requesting a less intrusive route of administration
if both routes are prescribed by the provider (PO <
IV).
02/18/25 13:54
Dofetilide [Tikosyn] 500 mcg PO 1354 STA
Abnormal Lab Results
02/18/25 02/18/25
08:50 08:51
MCH 32.4 H pg
(27.0-31.0)
MPV 10.5 H fL
(7.4-10.4)
Absolute Lymphs (auto) 1.0 L 10^3/uL
(1.2-3.4)
Neutrophils % 76.9 H %
(42.2-75.2)
Lymphocytes % 13.0 L %
(20.5-51.1)
Sodium 132 L mmol/L
(135-145)
Chloride 97 L mmol/L
(98-107)
Glucose 125 H mg/dl
(70-99)
Total Bilirubin 1.5 H mg/dl
(0.2-1.3)
02/18/25 08:50
02/18/25 08:51
Vital Signs
Initial and Last Documented VS:
Initial Vital Signs
Temp Pulse Resp BP Pulse Ox
98.0 F 78 16 162/96 98
02/18/25 08:21 02/18/25 08:21 02/18/25 08:21 02/18/25 08:21 02/18/25 08:21
Last Documented Vital Signs
Temp Pulse Resp BP Pulse Ox
98 F 62 16 133/83 99
02/18/25 14:00 02/18/25 14:15 02/18/25 12:04 02/18/25 14:00 02/18/25 14:15
*Pulse Oximetry
SaO2: 99
Oxygen Mode of Delivery: Room air
Patient hypoxic: no
*Regional Sales Coordinator Interpretation
Rate: normal
Interpretation: abnormal
Rhythm: a-fib
*Critical Care Note
Total Time (30-74mins, 75-104mins- exclusive of procedures): Not Applicable
ED Attending Note
-
Portions of this chart may have been created with voice recognition software.� Occasional wrong word or��sound alike� substitutions may have occurred due to the inherent limitations of voice recognition software.
Discharge Plan
Departure
Patient Disposition: Admit
Date of Disposition: 02/18/25
Time of Disposition: 10:40
Admit to: Med/Surg
Presentation/result/management discussed w/ accepting MD/DO: CBC cards
Discharge Problem:
Atrial fibrillation
Interventions
Interventions:
*Risk Screen - Suicide Last Done: 02/18/25 08:24
*Neglect/Abuse Screening Last Done: 02/18/25 08:24
*ED- Fall Risk Assessment Last Done: 02/18/25 08:51
ED- Cardiac Assessment Last Done: 02/18/25 08:51
[2025-02-18] MEDS: ATIVAN 1 MG PO (11:04)
--- NOTE | 2025-02-18 13:09 | W.CARD.TIKOS ---
Initiate Tikosyn
-
I verify that the patient has not taken any verapamil (Isoptin/Calan), ketoconazole (Nizoral), cimetidine (Tagamet), trimethoprim (Trimpex), trimethoprim/sulfamethoxazole (Bactrim), megesterol (Megace), prochlorperazine (Compazine),
hydrochlorothiazide (HCTZ), dolutegravir (Tivicay) or any Class I or Class III anti-arrhythmic within the last three days
AND
I verify that the patient has not taken amiodarone within the last THREE months, or that the patient's amiodarone plasma concentration is <0.3 mcg/mL.
Creatinine 0.8 mg/dL (0.7-1.3) 02/18/25 08:51
Estimated Creat Clear 84 ml/min 02/18/25 08:51
Does patient have a Ventricular Conduction Abnormality: No
I have assessed the baseline QTc interval (using QT for heart rate less than 60 bpm) and deemed the patient is appropriate for Dofetilide therapy. I understand that Tikosyn is contraindicated if the QTc is >440msec (500msec in patients with
ventricular conduction abnormalities).
Baseline QTc (in msec): 403
Ordering Physician: Isabel Castaneda
[2025-02-18] MEDS: TIKOSYN 500 MCG PO (14:18)
--- NOTE | 2025-02-18 16:20 | PTCARENOTE ---
Pt admitted into 6 for initiation of tikosyn, currently in afib. Pt AOx3, assessment as documented. pt oriented to room, call monteiro within reach, questions answered.
--- NOTE | 2025-02-18 18:04 | PTCARENOTE ---
pt converted to sinus bradycardia at approx 1745, confirmed by EKG. Dr. Castaneda notified.
[2025-02-18] MEDS: ELIQUIS 5 MG PO (20:59)
[2025-02-18] MEDS: CRESTOR 20 MG PO (21:33)
[2025-02-18] MEDS: MELATONIN 5 MG PO (21:33)
[2025-02-18] MEDS: ANESTHETIC LOZENGE 1 LOZENGE PO (21:48)
--- NOTE | 2025-02-19 00:50 | PTCARENOTE ---
2200 scheduled Tikosyn dose held per Dr. Castaneda as first dose given late (1418 on 02/18). Also QTc on conversion EKG 473. Pt. continues in sinus rhythm with rate 40's. Resting quietly.
[2025-02-19 03:55] VITALS: BP 117/71
[2025-02-19 04:44] LABS: Blood Urea Nitrogen 13 mg/dl (9-20); Calcium 9.0 mg/dl (8.4-10.2); Carbon Dioxide 26 mmol/L (22-30); Chloride 99 mmol/L (98-107); Estimated Creatinine Clearance 81 ml/min; Glucose 96 mg/dl (70-99); Potassium 4.0 mmol/L (3.5-5.1); Sodium 129 mmol/L (135-145); eGFR > 60.00
[2025-02-19 07:31] VITALS: BP 121/75
[2025-02-19] MEDS: ELIQUIS 5 MG PO ×2 (08:04→20:22)
[2025-02-19] MEDS: TIKOSYN 500 MCG PO ×2 (08:04→20:23)
--- NOTE | 2025-02-19 09:02 | W.PN.CD ---
Today's Communication / Plan
-
- Continue Tikosyn loading
Impression / Plan
-
69 yrs old man with with hx of atrial fibrillation s/p AF ablations x4 s/p post redo PVI, PW and LA flutter ablation 02/14/25 presented with recurrent AF
Recurrent AF:
- AF ablation on 02/14/25- PVI and PWI (Hx of left sided PV stensois).
- Hx of ablation x4
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 He becomes really sympomatic with AF
- Recent ablation. will wait for blanking period to assess the effect of this ablation
- With his symptomatic AF, we discussed DCCV vs progression to the pharmacologic aid like Tikosyn
- QTc is acceptable.
- Tikosyn 500 mcg BID. second dose this AM - dose 06/23
- QTc is acceptable.
= Prominent U waves makes the QTc reading longer than it actual is.
- ECHO on Thursday
- Continue Tikosyn loading
DANNY
- Severe anxiety
- Received benzo in the ER
- Will give Clonazepam 0.5 mg tonight.
Physical Exam
Vital Signs/Labs
Vital Signs
Temp Pulse Resp BP Pulse Ox
97.7 F 56 15 121/75 100
02/19/25 07:29 02/19/25 08:00 02/19/25 07:29 02/19/25 07:31 02/19/25 07:31
02/18/25 02/19/25 02/20/25
06:59 06:59 06:59
Actual Weight 66 kg
02/18/25 08:50
02/19/25 04:01
Physical Exam
Constitutional: No acute distress and Comfortable
EENT: Anicteric and Moist mucous membranes
Cardiovascular: Rhythm & rate is regular, Pedal edema is absent and JVD pressure is normal
Respiratory: Respiratory effort normal, Lungs clear to auscul. and Wheeze Absent
GI: Soft, Non tender and Normal bowel sounds
Neuro/Psych: Alert, Oriented, AO x 3 and Motor deficits absent
Data Reviewed
-
Date of Service: February 19, 2025
Medical Decision Making: Reviewed Test Results, Test Interpretation and Review of Case with other Provider
EKG: Tracing Personally Visualized and interpreted
Labs: Labs Reviewed by me
Old Records: Reviewed
[2025-02-19 11:24] VITALS: BP 114/72
[2025-02-19 15:21] VITALS: BP 134/80
--- NOTE | 2025-02-19 17:33 | PTCARENOTE ---
02/19/2025 Received patient this AM in bed. satellite project site monitor read NSR-SB. Patient with no complaints of chest pain, palpitations, dizziness or shortness of breath. Pt on room air 96-98%. VSS. Patient received #2 dose of Tikosyn. EKG done. Patient
walking around room with no issues. Will monitor.
[2025-02-19] MEDS: CRESTOR 20 MG PO (17:39)
[2025-02-19 18:34] VITALS: BP 120/80
--- NOTE | 2025-02-19 19:16 | PTCARENOTE ---
02/19/2025 0800 2nd dose of Tikosyn given, Post-EKG done at 10am , QTC 575, Dr. Castaneda made aware. No new orders given, continue Tikosyn loading. Will monitor.
[2025-02-19 22:29] VITALS: BP 120/75
[2025-02-19] MEDS: KLONOPIN 0.5 MG PO (23:19)
[2025-02-19] MEDS: MELATONIN PO (23:19)
[2025-02-20] MEDS: MELATONIN PO ×2 (00:29→21:42)
--- NOTE | 2025-02-20 00:59 | PTCARENOTE ---
Assumed care at 1900. Dose #3 of Tikosyn given this shift (Clarified with Dr. Castaneda dose ok to give based on QTc on AM EKG although prolonged at 575). EKG two hours post dose showing QTc of 561. Dr. Castaneda made aware.
[2025-02-20 03:10] VITALS: BP 125/80
[2025-02-20 03:59] LABS: Blood Urea Nitrogen 16 mg/dl (9-20); Calcium 8.9 mg/dl (8.4-10.2); Carbon Dioxide 26 mmol/L (22-30); Chloride 101 mmol/L (98-107); Estimated Creatinine Clearance 81 ml/min; Glucose 95 mg/dl (70-99); Potassium 4.0 mmol/L (3.5-5.1); Sodium 131 mmol/L (135-145); eGFR > 60.00
[2025-02-20 07:54] VITALS: BP 126/80
[2025-02-20] MEDS: TIKOSYN 500 MCG PO ×2 (08:30→19:51)
[2025-02-20] MEDS: ELIQUIS 5 MG PO ×2 (08:30→19:51)
[2025-02-20] MEDS: FLUSH (NSS) 1 FLUSH IV (08:30)
--- NOTE | 2025-02-20 09:04 | PTCARENOTE ---
Received patient this morning resting in bed, remains in SR/SB. Patient anxious about his HR, worried that when he does any activity in the room that his HR, which is usually in the 50-60's, increases to the 70-80's with minimal exertion. Received
4th dose of tikosyn as ordered, will monitor EKG in 2 hours.
--- NOTE | 2025-02-20 10:21 | CM ---
Pricing on Dofetilide through the patient's [facility] is a $0 copay and 500mcq is in stock. Will confirm availability on discharge. Patient will need a 3 day supply to go home.
[2025-02-20 11:30] VITALS: BP 122/76
--- NOTE | 2025-02-20 11:48 | CM ---
Chart reviewed. Patient is independent of ADLS, lives alone in a 2 [address], 1 TODD, 0 DME. Plan is for the patient to return home. CM to follow
--- NOTE | 2025-02-20 15:00 | W.PN.CD ---
Today's Communication / Plan
-
- Likely discharge home tomorrow
- Continue loading Tikosyn
Impression / Plan
-
69 yrs old man with with hx of atrial fibrillation s/p AF ablations x4 s/p post redo PVI, PW and LA flutter ablation 02/14/25 presented with recurrent AF
Recurrent AF:
- AF ablation on 02/14/25- PVI and PWI (Hx of left sided PV stensois).
- Hx of ablation x4
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 He becomes really sympomatic with AF
- Recent ablation. will wait for blanking period to assess the effect of this ablation
- With his symptomatic AF, we discussed DCCV vs progression to the pharmacologic aid like Tikosyn
- QTc is acceptable.
- Tikosyn 500 mcg BID. dose this AM - dose 08/21
- QTc is acceptable.
- Prominent U waves makes the QTc reading longer than it actual is.
- ECHO today.
- Continue Tikosyn loading
DANNY
- Severe anxiety
- Received benzo in the ER
- prn Clonazepam 0.5 mg tonight.
Physical Exam
Vital Signs/Labs
Vital Signs
Temp Pulse Resp BP Pulse Ox
98.1 F 61 14 122/76 98
02/20/25 11:29 02/20/25 11:30 02/20/25 11:29 02/20/25 11:30 02/20/25 11:29
02/19/25 02/20/25 02/21/25
06:59 06:59 06:59
Actual Weight 66 kg
02/18/25 08:50
02/20/25 03:22
Physical Exam
Constitutional: No acute distress and Comfortable
EENT: Anicteric and Moist mucous membranes
Cardiovascular: Rhythm & rate is regular, Pedal edema is absent and JVD pressure is normal
Respiratory: Respiratory effort normal, Lungs clear to auscul. and Wheeze Absent
GI: Soft, Non tender and Normal bowel sounds
Neuro/Psych: Alert, Oriented and AO x 3
Other: Cath Site
Data Reviewed
-
Date of Service: February 20, 2025
Medical Decision Making: Reviewed Test Results, Test Interpretation and Review of Case with other Provider
EKG: Tracing Personally Visualized and interpreted and Report Reviewed by me
Labs: Labs Reviewed by me
Old Records: Reviewed
[2025-02-20 15:10] VITALS: BP 132/85
[2025-02-20] MEDS: COLACE 100 MG PO (15:32)
[2025-02-20] MEDS: MIRALAX 17 GRAMS PO (15:33)
[2025-02-20] MEDS: CRESTOR 20 MG PO (18:38)
[2025-02-20 18:48] VITALS: BP 112/73
[2025-02-20] MEDS: KLONOPIN 0.5 MG PO (21:42)
[2025-02-20 22:08] VITALS: BP 112/78
[2025-02-21 05:20] VITALS: BP 128/78
[2025-02-21 07:23] VITALS: BP 135/72
[2025-02-21] MEDS: TIKOSYN 500 MCG PO (08:03)
[2025-02-21] MEDS: ELIQUIS 5 MG PO (08:03)
[2025-02-21] MEDS: ATIVAN 0.5 MG PO (09:00)
--- NOTE | 2025-02-21 09:07 | PTCARENOTE ---
received patient this am, walking in hallway, monitor shows NSR, VSS. Tikosyn #6 dose given. at 0900, HR increased, patient has anxiety, monitor shows Afib. TT Dr. Ortiz, lorazepam po given for anxiety and EKG obtained which confirmed Afib.
--- NOTE | 2025-02-21 09:33 | PTCARENOTE ---
Dr. Castaneda came to see patient. patient will be NPO for ablation this afternoon.
--- NOTE | 2025-02-21 10:03 | W.PN.CD ---
Today's Communication / Plan
-
- Continue Tikosyn
- Keep rhythm monitoring. NPO for now. may need flutter ablation.
Impression / Plan
-
69 yrs old man with with hx of atrial fibrillation s/p AF ablations x4 s/p post redo PVI, PW and LA flutter ablation 02/14/25 presented with recurrent AF
Recurrent AF:
- AF ablation on 02/14/25- PVI and PWI (Hx of left sided PV stensois).
- Hx of ablation x4
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 He becomes really symptomatic with AF
- Recent ablation. will wait for blanking period to assess the effect of this ablation
- With his symptomatic AF, we discussed DCCV vs progression to the pharmacologic aid like Tikosyn
- QTc is acceptable.
- Tikosyn 500 mcg BID. dose this AM - dose 10/21 - loading completed.
- QTc is acceptable.
- Prominent U waves makes the QTc reading longer than it actual is.
- ECHO - 02/20/25 - Thick aortic cusps. Normal biventricular size and systolic function without regional wall motion abnormality. LVEF 67%. Possible density noted. No sign of infection.
- Continue Eliquis 4 mg BID.
Recurrent AF/Flutter noted today
- was in AF before but appears more flutter now.
- We discussed conservative management and continue to observe
- if he is out of his flutter by this afternoon, we can continue to monitor
- If remains in AF/FL then either can do DCCV or repeat EAM. The aortic valve thickness / density appears chronic and is likely not related to atrial instrumentation.
DANNY
- Severe anxiety
- Received benzo in the ER
- prn Clonazepam 0.5 mg
Physical Exam
Vital Signs/Labs
Vital Signs
Temp Pulse Resp BP Pulse Ox
98.5 F 62 18 135/72 98
02/21/25 07:21 02/21/25 08:00 02/21/25 07:21 02/21/25 07:23 02/21/25 08:30
02/18/25 08:50
02/20/25 03:22
Physical Exam
Constitutional: No acute distress and Comfortable
EENT: Anicteric and Moist mucous membranes
Cardiovascular: Pedal edema is absent, JVD pressure is normal and Rhythm/rate is irregular
Respiratory: Respiratory effort normal, Wheeze Absent and Crackles Absent
GI: Soft, Distention absent, Normal bowel sounds and Distention present
Neuro/Psych: Alert, Oriented and AO x 3
Data Reviewed
-
Date of Service: February 21, 2025
Medical Decision Making: Reviewed Test Results, Test Interpretation and Review of Case with other Provider
EKG: Tracing Personally Visualized and interpreted
Echo: Tracing Personally Visualized and interpreted
Labs: Labs Reviewed by me
Old Records: Reviewed
--- NOTE | 2025-02-21 10:18 | PTCARENOTE ---
patient back in NSR
[2025-02-21 11:02] VITALS: BP 125/85
--- NOTE | 2025-02-21 11:11 | CM ---
Chart reviewed. Patient is independent of ADLS, lives alone in a [address], 1 TODD, 0 DME. Patient in and out of afib, may go for an ablation today. CM to confirm availability at discharge. Patient will need a 3 day supply at discharge. CM to follow
--- NOTE | 2025-02-21 11:54 | W.PN.UPDATE ---
Update Note
Progress Note Update
Patient spontaneously converted into sinus rhythm after a.m. dose of Tikosyn. At this time we will continue him on dofetilide 500 mcg twice a day along with Eliquis. We will hold his amlodipine and diltiazem. He will use metoprolol as needed at home.
After long discussion we are not planning on doing another ablation and patient can go home today. Will continue to monitor his rhythm in the blanking period.
[2025-02-21] MEDS: LOPRESSOR PO (12:02)
--- NOTE | 2025-02-21 12:02 | PTCARENOTE ---
TT Dr. Castaneda , patient back in NSR, HR 76, didn't give the now dose of Lopressor as per Dr. Castaneda.
--- NOTE | 2025-02-21 12:10 | W.DS.TRANS ---
DC Summary - [employer]
-
Discharge Instructions:
Sleep Apnea Risk Low
Discharge Diagnosis/Procedures Recurrent atrial fibrillation
Dofetilide loading
Diet Low Sodium,Low Cholesterol
Activity As tolerated
Driving Restrictions As prior to admission
Bathing Restrictions None
Instructions:
Stand-Alone Forms:
Changes to Home Medications: Yes
Discharge Medications:
DC Medications w/original date entered in [email or web address]
coenzyme Q10 10 mg capsule (Co Q-10) 200 mg PO DAILY Supplement 05/07/17
apixaban 5 mg tablet (Eliquis) 5 mg PO BID ##60 06/09/17
rosuvastatin 20 mg tablet 20 mg PO DAILY High Cholesterol 02/09/25
zolpidem 10 mg tablet 10 mg PO HS PRN insomnia 02/09/25
ivermectin 1 % topical cream 1 applic topical QHS Skin Issues 02/18/25
metronidazole 1 % topical gel 1 applic topical DAILY Skin Issues 02/18/25
acetaminophen 325 mg tablet 650 mg (2 x 325 mg) PO Q4HPRN PRN Mild pain, MILAN #30 tabs 02/21/25
dofetilide 500 mcg capsule 500 mcg PO Q12H #60 caps 02/21/25
metoprolol tartrate 25 mg tablet 25 mg PO BID PRN Elevated HR #60 tabs 02/21/25
Home Medication Changes
Discontinued: Amlodipine, diltiazem, propranolol
New: Metoprolol tartrate PRN, dofetilide
Pending Results: No
--- NOTE | 2025-02-21 12:58 | PTCARENOTE ---
patient able to eat lunch, then will be discharged to home this afternoon.
--- NOTE | 2025-02-21 13:53 | PTCARENOTE ---
Tikosyn given to patient from our pharmacy.
[2025-02-21] MEDS: LOPRESSOR 25 MG PO (15:24)
--- NOTE | 2025-02-21 15:24 | PTCARENOTE ---
patient back in afib, TT Dr. Castaneda, Lopressor 25 mg po given as ordered.
[2025-02-21 15:47] VITALS: BP 160/103
[2025-02-21 15:49] VITALS: BP 157/100
--- NOTE | 2025-02-21 16:21 | PTCARENOTE ---
D/C instructions given to patient , verbalizes understanding. patient is quite anxious, sat with patient and offered emotional support. telemetry D/C'd, INT D/C'd personal belongings packed and sent home with patient. D/C to home via wc accompanied
by staff.
== END 2025-02-21 16:25 | disposition home or self-care (01) | DRG 310 ==
LOC: IVU 10:54
PROVIDERS: Nurse Practitioner Gerontology; ADMITTING PHYSICIAN Internal Medicine Cardiovascular Disease; EMERGENCY PHYSICIAN Emergency Medicine; FAMILY PHYSICIAN Family Medicine
DX: I48.0 Paroxysmal atrial fibrillation (principal); F41.9 Anxiety disorder, unspecified; E78.00 Pure hypercholesterolemia, unspecified; G47.00 Insomnia, unspecified; I10 Essential (primary) hypertension
CPT/HCPCS: 80048; 80053; 85025; 93005; 93306; 99285